=== PATIENT | male | born 1985 | race African-American/Black ===

== ENCOUNTER 2016-11-18 21:05 | Emergency (ER) | payer MEDICARE, MEDICAID ==
[~2016-11-18] VITALS: Ht 195.6 cm; Wt 131.8 kg
[~2016-11-18 21:05] MED LIST: ACULAR OPHTHALMI5 ML OP; AMBIEN10 MG PO; ANUSOL-HC25 MG RC; BENZTROPINE MESY1 MG PO; COGENTIN 1MG1 MG/TAB PO; COLACE 100100 MG/CAP PO; DEPAKOTE250 MG PO; DEPAKOTE500 MG PO; DESYREL 50MG50 MG PO; FLEXERIL 1010 MG/TAB PO; FLUPHENAZINE H2.5 MG PO; KLONOPIN2 MG PO; NAPROSYN500 MG PO; NO HOME MEDICATIONS; NORCO 325 MG-51 TAB PO; SEROQUEL400 MG PO; TEGRETOL 2200 MG/TA1 PO; TENORMIN 5050 MG/TAB PO; [UNRECOGNIZED DRUG - OTHER] PO; [UNRECOGNIZED DRUG - REMARK]
[2016-11-18 21:17] VITALS: BP 142/88; TEMP 98
[2016-11-18 22:54] VITALS: PULSE 77
== END 2016-11-18 22:55 | disposition home or self-care (01) ==
LOC: COL.ER 21:05
DX: S83.91XA Sprain of unspecified site of right knee, initial encounter (principal); X50.1XXA Overexertion from prolonged static or awkward postures, initial encounter; Y93.67 Activity, basketball; Y92.310 Basketball court as the place of occurrence of the external cause
CPT/HCPCS: L1830

== ENCOUNTER 2017-01-02 15:35 | Emergency (ER) | payer MEDICARE, MEDICAID ==
[~2017-01-02] VITALS: Ht 195.6 cm; Wt 134.1 kg
[2017-01-02 15:42] VITALS: BP 143/92; TEMP 97.9
[2017-01-02 18:09] LABS: INFLUENZA B NEGATIVE
[2017-01-02 18:28] VITALS: PULSE 73
== END 2017-01-02 18:29 | disposition home or self-care (01) ==
LOC: COL.ER 15:35
PROVIDERS: Nurse Practitioner
DX: J06.9 Acute upper respiratory infection, unspecified (principal)

== ENCOUNTER → 2017-02-18 | Outpatient (REF) ==
[~2017-02-18] MED LIST changes: +ULTRAM 50MG TAB50 MG PO
== END ==
LOC: WSOH 12:48
DX: Z01.89 Encounter for other specified special examinations (principal)

== ENCOUNTER 2017-04-15 19:39 | Emergency (ER) | payer MEDICARE, MEDICAID ==
[~2017-04-15] VITALS: Ht 195.6 cm; Wt 128.2 kg
[~2017-04-15 19:39] MED LIST changes: -ULTRAM 50MG TAB50 MG PO
[2017-04-15 19:40] VITALS: BP 153/86; TEMP 97.7
[2017-04-15] MEDS ORDERED: NORCO 325 MG-51 TAB PO (19:58)
[2017-04-15] MEDS ORDERED: ULTRAM 50MG TAB50 MG PO (19:58)
[2017-04-15 20:10] VITALS: PULSE 78
== END 2017-04-15 20:15 | disposition home or self-care (01) ==
LOC: COL.ER 19:39
DX: M54.5 Low back pain (principal)

== ENCOUNTER → 2017-04-23 | Outpatient (CLI) | payer MEDICARE, MEDICAID ==
[~2017-04-23] MED LIST changes: +ULTRAM 50MG TAB50 MG PO
[2017-04-23 12:17] LABS: BASO % 0.4 % (0.0-2.0); EOS # 0.1 (0.0-0.7); GRAN # 1.9 (1.4-6.5); GRAN % 36.8 % (42.2-75.2); HEMATOCRIT 44.4 % (42.0-52.0); HEMOGLOBIN 14.4 g/dl (13.5-18.0); LYMPH # 2.8 (1.2-3.4); LYMPH % 54.7 % (20.0-51.0); MEAN CELL VOLUME 84 fl (80.0-100.0); MEAN CORPUSCULAR HEMOGLOBIN 27 pg (27.0-31.0); MEAN CORPUSCULAR HGB CONC 32 g/dl (33.0-37.0); MEAN PLATELET VOLUME 10.8 fl (7.4-10.4); MONO # 0.4 (0.1-0.6); MONO % 6.9 % (1.7-9.3); PLATELET COUNT 161 K/mm3 (130-400); RED BLOOD COUNT 5.31 M/mm3 (4.20-5.60); REDCELL DISTRIBUTION WIDTH-CV 14.3 % (11.5-14.5); WHITE BLOOD COUNT 5.1 K/mm3 (4.8-10.8)
[2017-04-23 12:22] LABS: ALBUMIN 4.3 gm/dL (3.5-5.0); BILIRUBIN,TOTAL 0.9 mg/dL (0.0-1.0); TOTAL PROTEIN 7.1 gm/dL (6.4-8.2)
[2017-04-23 12:44] LABS: BILIRUBIN,DIRECT 0.4 mg/dL (0.0-0.4)
[2017-04-23 12:53] LABS: THYROID STIMULATING HORMONE 3.74 uIU/mL (0.465-4.680)
== END ==
LOC: COL.LAB 11:28
PROVIDERS: Counselor
DX: Z79.899 Other long term (current) drug therapy (principal)

== ENCOUNTER → 2018-02-11 | Outpatient (CLI) | payer MEDICARE, MEDICAID ==
[2018-02-11 10:20] LABS: BASO % 0.3 % (0.0-2.0); EOS # 0.1 (0.0-0.7); EOS % 1.3 % (0-4.0); GRAN # 2.7 (1.4-6.5); GRAN % 43.4 % (42.2-75.2); HEMATOCRIT 45.8 % (42.0-52.0); HEMOGLOBIN 15.2 g/dl (13.5-18.0); LYMPH # 2.9 (1.2-3.4); LYMPH % 46.8 % (20.0-51.0); MEAN CELL VOLUME 82 fl (80.0-100.0); MEAN CORPUSCULAR HEMOGLOBIN 27 pg (27.0-31.0); MEAN CORPUSCULAR HGB CONC 33 g/dl (33.0-37.0); MEAN PLATELET VOLUME 11.3 fl (7.4-10.4); MONO # 0.5 (0.1-0.6); MONO % 7.7 % (1.7-9.3); PLATELET COUNT 148 K/mm3 (130-400); RED BLOOD COUNT 5.56 M/mm3 (4.20-5.60)
[2018-02-11 10:33] LABS: ALBUMIN 4.2 gm/dL (3.5-5.0); BILIRUBIN UNCONJUGATED 0.4 mg/dL (0.0-1.1); BILIRUBIN,DIRECT 0.2 mg/dL (0.0-0.4); BILIRUBIN,TOTAL 0.7 mg/dL (0.0-1.0); TOTAL PROTEIN 7.7 gm/dL (6.4-8.2)
[2018-02-11 10:53] LABS: VALPROIC ACID (DEPAKENE) 69.1 ug/mL (50.0-100.0)
[2018-02-11 11:31] LABS: THYROID STIMULATING HORMONE 5.71 uIU/mL (0.465-4.680)
== END ==
LOC: COL.LAB 09:26
PROVIDERS: Counselor
DX: Z79.899 Other long term (current) drug therapy (principal)

== ENCOUNTER 2018-06-22 18:37 | Emergency (ER) | payer MEDICARE, MEDICAID ==
[~2018-06-22] VITALS: Ht 195.6 cm; Wt 136.4 kg
[2018-06-22 18:40] VITALS: BP 144/80; TEMP 98.3
[2018-06-22] MEDS ORDERED: TENORMIN 5050 MG/TAB PO (18:51)
[2018-06-22] MEDS ORDERED: TENORMIN 2525 MG/TAB PO (18:51)
[2018-06-22 19:28] LABS: COLLECTION METHOD CLEAN CATCH
[2018-06-22 19:47] LABS: PH 6 (5-8); SQUAMOUS EPITHELIAL 0-2 /hpf; URINE APPEARANCE Hazy; URINE BACTERIA None Seen /hpf; URINE BILIRUBIN Negative (NEGATIVE); URINE BLOOD 3+ (NEGATIVE); URINE COLOR Yellow; URINE GLUCOSE Negative (NEGATIVE); URINE KETONE Negative (NEGATIVE); URINE LEUKOCYTE ESTERASE Negative (NEGATIVE); URINE NITRATE Negative (NEGATIVE); URINE PROTEIN(semi-quant) 1+ (NEGATIVE); URINE RBC >50 /hpf
[2018-06-22] MEDS ORDERED: CIPRO 500MG TA500 MG PO (19:52)
[2018-06-22 19:54] LABS: BASO % 0.4 % (0.0-2.0); EOS # 0.1 (0.0-0.7); EOS % 1.6 % (0-4.0); GRAN # 2.4 (1.4-6.5); GRAN % 48.4 % (42.2-75.2); HEMOGLOBIN 14.6 g/dl (13.5-18.0); LYMPH # 1.6 (1.2-3.4); LYMPH % 32.7 % (20.0-51.0); MEAN CELL VOLUME 83 fl (80.0-100.0); MEAN CORPUSCULAR HEMOGLOBIN 27 pg (27.0-31.0); MEAN CORPUSCULAR HGB CONC 33 g/dl (33.0-37.0); MEAN PLATELET VOLUME 10.7 fl (7.4-10.4); MONO # 0.8 (0.1-0.6); MONO % 16.7 % (1.7-9.3); PLATELET COUNT 148 K/mm3 (130-400); RED BLOOD COUNT 5.33 M/mm3 (4.20-5.60); REDCELL DISTRIBUTION WIDTH-CV 14.4 % (11.5-14.5)
[2018-06-22 20:07] LABS: ALBUMIN 4.4 gm/dL (3.5-5.0); BILIRUBIN,TOTAL 0.3 mg/dL (0.0-1.0); CALCIUM 9.2 mg/dL (8.4-10.2); CREATININE, serum 0.94 mg/dL (0.66-1.25); POTASSIUM 4.3 mmol/L (3.4-5.0); TOTAL PROTEIN 7.6 gm/dL (6.4-8.2)
[2018-06-22 20:26] LABS: ERYTHROCYTE SEDIMENTATION RATE 1 mm/hr (0-15)
[2018-06-22 20:47] VITALS: PULSE 90
== END 2018-06-22 20:47 | disposition home or self-care (01) ==
LOC: COL.ER 18:37
PROVIDERS: Physician Assistant
DX: N39.0 Urinary tract infection, site not specified (principal); I10 Essential (primary) hypertension; F17.210 Nicotine dependence, cigarettes, uncomplicated
CPT/HCPCS: J0696

== ENCOUNTER → 2018-06-25 | Outpatient (CLI) | payer MEDICARE, MEDICAID ==
[~2018-06-25] MED LIST changes: +CIPRO 500MG TA500 MG PO; +TENORMIN 2525 MG/TAB PO
[2018-06-25 17:24] LABS: THYROID STIMULATING HORMONE 2.68 uIU/mL (0.465-4.680)
== END ==
LOC: COL.LAB 15:40
PROVIDERS: Family Medicine
DX: R94.6 Abnormal results of thyroid function studies (principal)

== ENCOUNTER 2018-07-15 13:03 | Emergency (ER) | payer MEDICARE, MEDICAID ==
[~2018-07-15] VITALS: Ht 195.6 cm; Wt 129.5 kg
[2018-07-15 13:07] VITALS: TEMP 99.3
[2018-07-15 14:57] VITALS: BP 142/69; PULSE 80
== END 2018-07-15 14:58 | disposition home or self-care (01) ==
LOC: COL.ER 13:03
DX: S93.401A Sprain of unspecified ligament of right ankle, initial encounter (principal); F31.9 Bipolar disorder, unspecified; F17.290 Nicotine dependence, other tobacco product, uncomplicated; X50.0XXA Overexertion from strenuous movement or load, initial encounter; Y92.89 Other specified places as the place of occurrence of the external cause

== ENCOUNTER 2018-07-16 08:45 | Outpatient (RCR) | payer OTHER ==
[2018-08-19] MEDS ORDERED: LIDODERM 5% PATC1 EA TP (15:10)
== END 2018-10-14 | disposition home or self-care (01) ==
LOC: WSOH
DX: S93.401A Sprain of unspecified ligament of right ankle, initial encounter (principal); X58.XXXA Exposure to other specified factors, initial encounter; Y93.F9 Activity, other caregiving; Y92.129 Unspecified place in nursing home as the place of occurrence of the external cause; Y99.0 Civilian activity done for income or pay; F17.290 Nicotine dependence, other tobacco product, uncomplicated; Z79.899 Other long term (current) drug therapy

== ENCOUNTER 2018-08-19 14:10 | Emergency (ER) | payer OTHER ==
[~2018-08-19] VITALS: Ht 195.6 cm; Wt 120.5 kg
[2018-08-19 14:16] VITALS: TEMP 98.1
[2018-08-19] MEDS ORDERED: LIDODERM 5% PATC1 EA TP (15:10)
[2018-08-19 15:32] VITALS: BP 139/99; PULSE 72
== END 2018-08-19 15:35 | disposition home or self-care (01) ==
LOC: COL.ER 14:10
DX: S39.012A Strain of muscle, fascia and tendon of lower back, initial encounter (principal); F31.9 Bipolar disorder, unspecified; X50.0XXA Overexertion from strenuous movement or load, initial encounter

== ENCOUNTER → 2018-09-22 | Outpatient (CLI) | payer MEDICAID ==
[~2018-09-22] MED LIST changes: +LIDODERM 5% PATC1 EA TP
[2018-09-22 16:32] LABS: BASO % 0.4 % (0.0-2.0); EOS # 0.1 (0.0-0.7); EOS % 0.9 % (0-4.0); GRAN # 2.9 (1.4-6.5); GRAN % 51.8 % (42.2-75.2); HEMATOCRIT 44.4 % (42.0-52.0); HEMOGLOBIN 14.7 g/dl (13.5-18.0); LYMPH # 2.2 (1.2-3.4); LYMPH % 40.5 % (20.0-51.0); MEAN CELL VOLUME 82 fl (80.0-100.0); MEAN CORPUSCULAR HEMOGLOBIN 27 pg (27.0-31.0); MEAN CORPUSCULAR HGB CONC 33 g/dl (33.0-37.0); MEAN PLATELET VOLUME 11.3 fl (7.4-10.4); MONO # 0.3 (0.1-0.6); MONO % 6.2 % (1.7-9.3); PLATELET COUNT 133 K/mm3 (130-400); RED BLOOD COUNT 5.39 M/mm3 (4.20-5.60); REDCELL DISTRIBUTION WIDTH-CV 14.5 % (11.5-14.5)
[2018-09-22 16:43] LABS: ALBUMIN 4.3 gm/dL (3.5-5.0); BILIRUBIN,TOTAL 0.6 mg/dL (0.0-1.0); TOTAL PROTEIN 7.4 gm/dL (6.4-8.2)
[2018-09-22 17:13] LABS: THYROID STIMULATING HORMONE 3.35 uIU/mL (0.465-4.680)
[2018-09-22 17:23] LABS: BILIRUBIN UNCONJUGATED 0.4 mg/dL (0.0-1.1); BILIRUBIN,DIRECT 0.1 mg/dL (0.0-0.4)
[2018-09-22 17:28] LABS: VALPROIC ACID (DEPAKENE) 71.2 ug/mL (50.0-100.0)
== END ==
LOC: COL.LAB 15:34
PROVIDERS: Psychiatry & Neurology Psychiatry
DX: Z79.899 Other long term (current) drug therapy (principal)

== ENCOUNTER 2018-11-05 12:31 | Outpatient (RCR) | payer MEDICARE, MEDICAID | END 2018-11-16 16:00 | disposition home or self-care (01) | LOC: MKS.ESL.PT 12:31 | DX: Z01.818 Encounter for other preprocedural examination (principal); M25.812 Other specified joint disorders, left shoulder | CPT/HCPCS: G8984-GP; G8985-GP ==

== ENCOUNTER → 2018-11-16 | Outpatient (CLI) | payer MEDICARE, MEDICAID ==
[2018-11-16 18:31] LABS: HIV 1/2 Antibodies Non-Reactive; HIV-1p24 Antigen Non-Reactive
== END ==
LOC: ZCOL.LAB 16:40
PROVIDERS: Family Medicine
DX: Z11.3 Encounter for screening for infections with a predominantly sexual mode of transmission (principal)

== ENCOUNTER 2018-12-24 12:30 | Outpatient (RCR) | payer MEDICARE, MEDICAID | END 2019-02-17 11:35 | disposition home or self-care (01) | LOC: MKS.ESL.PT 12:30 | DX: Z47.89 Encounter for other orthopedic aftercare (principal) ==

== ENCOUNTER → 2019-04-01 | Outpatient (CLI) | payer MEDICARE, MEDICAID ==
[2019-04-01 12:26] LABS: BASO % 0.4 % (0.0-2.0); EOS # 0.1 (0.0-0.7); EOS % 1.6 % (0-4.0); GRAN % 40.4 % (42.2-75.2); HEMATOCRIT 47.6 % (42.0-52.0); HEMOGLOBIN 15.4 g/dl (13.5-18.0); LYMPH # 2.4 (1.2-3.4); LYMPH % 48.6 % (20.0-51.0); MEAN CELL VOLUME 83 fl (80.0-100.0); MEAN CORPUSCULAR HEMOGLOBIN 27 pg (27.0-31.0); MEAN CORPUSCULAR HGB CONC 32 g/dl (33.0-37.0); MEAN PLATELET VOLUME 10.9 fl (7.4-10.4); MONO # 0.4 (0.1-0.6); MONO % 8.8 % (1.7-9.3); PLATELET COUNT 155 K/mm3 (130-400); RED BLOOD COUNT 5.74 M/mm3 (4.20-5.60); REDCELL DISTRIBUTION WIDTH-CV 15.1 % (11.5-14.5)
[2019-04-01 12:34] LABS: ALBUMIN 4.3 gm/dL (3.5-5.0); BILIRUBIN,TOTAL 0.6 mg/dL (0.0-1.0); CALCIUM 9.5 mg/dL (8.4-10.2); CHOLESTEROL RISK RATIO 5.8; CREATININE, serum 0.95 (0.66-1.25); POTASSIUM 4.4 mmol/L (3.4-5.0); TOTAL PROTEIN 7.8 gm/dL (6.4-8.2)
[2019-04-01 12:50] LABS: VALPROIC ACID (DEPAKENE) 91.2 ug/mL (50.0-100.0)
== END ==
LOC: COL.LAB 11:54
PROVIDERS: Psychiatry & Neurology Psychiatry
DX: Z79.899 Other long term (current) drug therapy (principal)

== ENCOUNTER 2020-08-15 09:15 | Emergency (ER) | payer BC ==
[~2020-08-15] VITALS: Ht 378.5 cm; Wt 138.6 kg
[2020-08-15 09:19] VITALS: TEMP 97.8
[2020-08-15] MEDS ORDERED: FLEXERIL 1010 MG/TAB PO (09:38)
[2020-08-15 10:28] VITALS: BP 134/85; PULSE 76
== END 2020-08-15 10:30 | disposition home or self-care (01) ==
LOC: COL.ER 09:15
DX: M54.5 Low back pain (principal); F31.9 Bipolar disorder, unspecified; Z88.8 Allergy status to other drugs, medicaments and biological substances
CPT/HCPCS: J1170; J1885

== ENCOUNTER 2021-04-24 22:36 | Emergency (ER) | payer OTHER ==
[~2021-04-24] VITALS: Ht 195.6 cm; Wt 140.9 kg
[2021-04-24 23:38] VITALS: BP 157/91; PULSE 90; TEMP 98.4
== END 2021-04-24 23:38 | disposition home or self-care (01) ==
LOC: COL.ER 22:36
DX: S05.01XA Injury of conjunctiva and corneal abrasion without foreign body, right eye, initial encounter (principal); F31.9 Bipolar disorder, unspecified; Z88.8 Allergy status to other drugs, medicaments and biological substances; Z87.891 Personal history of nicotine dependence; X58.XXXA Exposure to other specified factors, initial encounter

== ENCOUNTER 2021-09-21 11:18 | Emergency (ER) | payer OTHER ==
[~2021-09-21] VITALS: Ht 198.1 cm; Wt 127.7 kg
[2021-09-21 12:28] LABS: BASO % 0.4 % (0.0-2.0); EOS % 0.2 % (0-4.0); GRAN # 5.4 K/mm3 (1.4-6.5); GRAN % 66.3 % (42.2-75.2); HEMATOCRIT 48.7 % (42.0-52.0); HEMOGLOBIN 15.6 g/dl (13.5-18.0); LYMPH # 2.2 K/mm3 (1.2-3.4); MEAN CELL VOLUME 83 fl (80.0-100.0); MEAN CORPUSCULAR HEMOGLOBIN 27 pg (27.0-31.0); MEAN CORPUSCULAR HGB CONC 32 g/dl (33.0-37.0); MEAN PLATELET VOLUME 10.9 fl (7.4-10.4); MONO # 0.5 K/mm3 (0.1-0.6); MONO % 5.9 % (1.7-9.3); PLATELET COUNT 162 K/mm3 (130-400); RED BLOOD COUNT 5.84 M/mm3 (4.20-5.60); REDCELL DISTRIBUTION WIDTH-CV 14.5 % (11.5-14.5)
[2021-09-21 12:47] LABS: ALANINE AMINOTRANSFERASE 25 U/L (0-55); ALBUMIN 4.3 gm/dL (3.5-5.0); ALCOHOL(ethanol),MEDICAL 11 mg/dL (0-10); ALKALINE PHOSPHATASE 33 U/L (40-150); ANION GAP 11 mmol/L (7-16); AST,SGOT 23 U/L (5-34); BLOOD UREA NITROGEN 13 mg/dL (9-21); CARBON DIOXIDE 24 mmol/L (22-29); CHLORIDE 104 mmol/L (98-107); CREATININE, serum 1.13 mg/dL (0.72-1.25); GLUCOSE 121 mg/dL (70-99); POTASSIUM 3.9 mmol/L (3.5-4.5); SODIUM 139 mmol/L (136-145); TOTAL PROTEIN 7.8 gm/dL (6.2-8.1)
[2021-09-21 12:51] LABS: COLLECTION METHOD CLEAN CATCH
[2021-09-21 12:51] LABS: ACETAMINOPHEN < 1.0 ug/mL (10-30); SALICYLATE < 5.0 mg/dL (15.0-30.0)
[2021-09-21 12:59] LABS: MUCOUS Present /lpf; PH 6 (5-8); SQUAMOUS EPITHELIAL None Seen /hpf; URINE APPEARANCE Clear; URINE BACTERIA Rare /hpf; URINE BILIRUBIN Negative (NEGATIVE); URINE BLOOD Negative (NEGATIVE); URINE COLOR Yellow; URINE GLUCOSE Negative (NEGATIVE); URINE KETONE Trace (NEGATIVE); URINE LEUKOCYTE ESTERASE Negative (NEGATIVE); URINE NITRATE Negative (NEGATIVE); URINE PROTEIN(semi-quant) Negative (NEGATIVE); URINE RBC 0-2 /hpf
[2021-09-21 13:13] LABS: TSH w REFLEX 1.635 uIU/mL (0.350-4.940)
[2021-09-21 13:16] LABS: TROPONIN-I < 0.010 ng/mL (0.00-0.033)
[2021-09-21 13:16] LABS: TRICYCLIC ANTIDEPRESS URINE NEGATIVE
[2021-09-21 22:33] VITALS: BP 143/84; PULSE 73; TEMP 97.5
== END 2021-09-21 22:33 ==
LOC: COL.ER 11:18
PROVIDERS: Nurse Practitioner
DX: R45.851 Suicidal ideations (principal); F31.9 Bipolar disorder, unspecified; I10 Essential (primary) hypertension; F17.210 Nicotine dependence, cigarettes, uncomplicated; Z79.899 Other long term (current) drug therapy; Z20.822 Contact with and (suspected) exposure to COVID-19

== ENCOUNTER 2023-07-22 16:16 | Emergency (ER) | payer OTHER ==
[~2023-07-22] VITALS: Ht 198.1 cm; Wt 135.0 kg
[~2023-07-22 16:16] MED LIST changes: +NORVASC 5MG5 MG/TAB PO; +PROZAC 10MG10 MG PO; +TOPROL XL 25MG25 MG PO; +VALTREX1 GM PO; +VISTARIL 2525 MG/CAP PO; +ZYPREXA 5MG5 MG PO
[2023-07-22 16:44] VITALS: TEMP 98
[2023-07-22] MEDS ORDERED: MOTRIN 800800 MG/TAB PO (17:10)
[2023-07-22 17:25] VITALS: BP 141/81; PULSE 72
== END 2023-07-22 17:25 | disposition home or self-care (01) ==
LOC: COL.ER 16:16
DX: S76.012A Strain of muscle, fascia and tendon of left hip, initial encounter (principal); W22.8XXA Striking against or struck by other objects, initial encounter

== ENCOUNTER 2023-12-02 19:31 | Emergency (ER) | payer SELFPAY ==
[~2023-12-02] VITALS: Ht 195.6 cm; Wt 109.1 kg
[~2023-12-02 19:31] MED LIST changes: +CRUTCHES MC; +FLEXERIL5 MG PO; +MOTRIN 800800 MG/TAB PO; +NEURONTIN100 MG/CAP PO
[2023-12-02 19:35] VITALS: TEMP 97.6
[2023-12-02 21:09] VITALS: BP 124/70; PULSE 76
== END 2023-12-02 21:10 | disposition home or self-care (01) ==
LOC: COL.ER 19:31
DX: S82.892A Other fracture of left lower leg, initial encounter for closed fracture (principal); S70.02XA Contusion of left hip, initial encounter; S70.12XA Contusion of left thigh, initial encounter; F17.210 Nicotine dependence, cigarettes, uncomplicated; W01.0XXA Fall on same level from slipping, tripping and stumbling without subsequent striking against object, initial encounter; X50.1XXA Overexertion from prolonged static or awkward postures, initial encounter
CPT/HCPCS: 31868; L4386

== ENCOUNTER 2023-12-30 12:53 | Emergency (ER) | payer SELFPAY ==
[~2023-12-30] VITALS: Ht 195.6 cm; Wt 107.3 kg
[2023-12-30 15:40] VITALS: BP 134/77; PULSE 76; TEMP 97.9
[2023-12-30] MEDS ORDERED: diazePAM 5 MG TAB PO ONE (16:30)
[2023-12-30] MEDS ORDERED: FLEXERIL 1010 MG/TAB PO (16:36)
[2023-12-30] MEDS ORDERED: ATIVAN 1MG T1 MG/TAB PO (16:36)
[2023-12-30] MEDS ORDERED: oxyCODONE/Acetaminophen 5-325 MG TAB PO ONE (16:45)
[2023-12-30] MEDS ORDERED: LORazepam 0.5 MG TAB PO ONE (16:45)
[2024-01-06] MEDS ORDERED: ZANAFLEX 4MG TAB4 MG PO (19:26)
== END 2023-12-30 17:08 | disposition home or self-care (01) ==
LOC: COL.ER 12:53
DX: M54.32 Sciatica, left side (principal); F20.9 Schizophrenia, unspecified